=== PATIENT | female | born 1965 | race Caucasian/White ===

== ENCOUNTER → 2019-02-07 | Outpatient (CLI) | payer BC ==
--- NOTE | 2019-02-07 14:11 | P.HPBAR ---
Bariatric H&P - History & Physicial H&P Date: 02/07/19 History & Physicial: Visit/CC: Patient initial contact: Initial weight: Initial weight in pounds: Height: Initial BMI: Last weight: Current weight: Current weight in pounds: Current BMI: Atkinson body weight (based on NIH guidelines): Excess body weight loss: The patient is a 53 year-old F who presents for Bariatric Assessment. Patient presents today for sleeve gastrectomy fall. Apparently she has been seen by diesel machinist at [facility]. She has had a history of GERD. During the EGD performed she states that they found minor esophageal varices. Patient denies any significant GERD. She's had no nausea vomiting or upper GI bleed. She does not drink any alcohol. Surgical - Exam - General well developed, well nourished, no distress - Eyes PERRL - ENT normal pinna - Neck no masses - Respiratory normal expansion - Cardiovascular Rhythm: regular - Abdomen Abdomen: soft, non tender Bariatric Assessment & Plan Plan: GERD. The records from [facility]. Will be obtained. Once is reviewed she may have be scheduled for repeat EGD. Patient will continue her proton pump inhibitor. Bariatric Checklist Checklist: Plan: Checklist: EGD: 1. Hiatal hernia: 2. H. Pylori: HgbA1c: Vitamin D: Smoking: Primary care physician referral: Psychiatry clearance: Cardiology clearance: Sleep study: Diet journal: VTE risk score: VTE risk level: Rehab needs at discharge:
[2019-02-07 14:13] VITALS: BP 117/59; PULSE 62; TEMP 98.2; BMI 25.2
== END | disposition home or self-care (01) ==
LOC: BARWHC3 12:47
PROVIDERS: ATTEND Surgery
DX: K21.9 Gastro-esophageal reflux disease without esophagitis (principal); Z79.899 Other long term (current) drug therapy
CPT/HCPCS: 99211